=== PATIENT | male | born 1980 | race Caucasian/White ===

== ENCOUNTER 2025-01-02 02:46 | Observation (INO) | payer OTHER, SELFPAY ==
[2025-01-01] VITALS (7 sets, daily range): BP systolic 130–157; BP diastolic 71–85
--- NOTE | 2025-01-01 22:46 | ED.GENMED ---
History of Present Illness
<Elle Moreno PA-C - Last Filed: 01/02/25 01:42>
General
Chief Complaint: Head Injury
Source: patient
Exam Limitations: none
Time Seen by Provider: 01/01/25 22:07
History of Present Illness
History of Present Illness:
44yoM with a history of Lyme disease earlier this year presenting for evaluation after head injury. Four days ago, patient was speaking with his sister when he suddenly became lightheaded and felt like he had to pass out. He went to sit in a chair
but missed due to losing consciousness. He hit his head on the concrete floor. Since then, he has been feeling unwell. He reports ongoing headaches with associated nausea. He is also experiencing hot and cold flashes. Lightheadedness has been
intermittent since then without any specific trigger. He also feels constipated. His heart races at times but he has been monitoring his heart rate on his Apple Watch which has been normal. He denies any chest pain or shortness of breath. No
additional syncopal episodes have occurred. He does not take any prescription medications. He is scheduled to retire from the [employer] next week.
Phy Exam
<Elle Moreno PA-C - Last Filed: 01/02/25 01:42>
General Physical Exam
General Presentation: well appearing and no apparent distress
General Skin: warm and dry
General Habitus: normal
General Mental: alert
ENT Exam
ENT Exam: normocephalic
Cardiovascular Exam
Cardiovascular Exam: no murmur and bradycardia
Pulmonary Exam
Pulmonary Exam: lungs clear, no respiratory distress, no rales, no crackles, no rhonchi and no wheezing
Gastrointestinal Exam
Gastrointestinal Exam: soft, non distended and other (+R sided and epigastric tenderness. Abdomen soft, nondistended. No rebound or guarding.)
Neurological Exam
Neurological Exam: alert
[place] Coma Scale
Eye Opening: Spontaneous
Verbal Response: Oriented
Motor Response: Obeys Commands
GCS Total Score: 15
Skin Exam
Skin Exam: normal color and warm/dry
Psychiatric Exam
Psychiatric Exam: normal mood/affect
Course
<Elle Moreno PA-C - Last Filed: 01/02/25 01:42>
Orders/Labs/Results
Orders:
Orders
01/01/25 22:45
Electrocardiogram (*1) Urgent
Reason for Study: Syncope
CT Abd/pelvis W Iv Cont Urgent
Comment:
Reason For Exam: generalized abd pain
CT Head W/o Iv Contrast Urgent
Comment:
Reason For Exam: head injury
Cardiac Monitoring- Treatment ONCE
EKG- Treatment ONCE
0.9% Sodium Chloride 1000 ml [Nss] 1,000 ml IV BOLUS
01/01/25 22:51
Complete Blood Count/With Diff Urgent
Comprehensive Metabolic Panel Urgent
Lipase Urgent
TSH Reflex To Free T4 Urgent
Troponin I Urgent
Urinalysis Reflex To Culture Urgent
Date Specimen was Collected: 01/01/25
Time Specimen was Collected: 22:50
01/01/25 23:03
Orthostatic VS- Treatment ONCE
01/02/25 00:40
Ondansetron Injectable [Zofran] 4 mg IV NOW STA
Abnormal Lab Results
01/01/25
22:51
RBC 4.42 L 10^6/uL
(4.70-6.10)
Abs Immat Gran (auto) 0.1 H 10^3/uL
(0-0.05)
Absolute Neuts (auto) 8.3 H 10^3/uL
(1.4-6.5)
Absolute Monos (auto) 0.7 H 10^3/uL
(0.1-0.6)
Neutrophils % 77.1 H %
(42.2-75.2)
Lymphocytes % 14.8 L %
(20.5-51.1)
Glucose 110 H mg/dl
(70-99)
01/01/25 22:51
01/01/25 22:51
Vital Signs
Initial and Last Documented VS:
Initial Vital Signs
Temp Pulse Resp BP Pulse Ox
98.2 F 65 16 157/79 98
01/01/25 21:29 01/01/25 21:29 01/01/25 21:29 01/01/25 21:29 01/01/25 21:29
Last Documented Vital Signs
Temp Pulse Resp BP Pulse Ox
98.2 F 48 17 132/85 98
01/01/25 21:29 01/01/25 22:56 01/01/25 22:53 01/01/25 22:53 01/01/25 22:50
<Yoni Hood, - Last Filed: 01/02/25 01:37>
Orders/Labs/Results
Orders:
Orders
01/01/25 22:45
Electrocardiogram (*1) Urgent
Reason for Study: Syncope
CT Abd/pelvis W Iv Cont Urgent
Comment:
Reason For Exam: generalized abd pain
CT Head W/o Iv Contrast Urgent
Comment:
Reason For Exam: head injury
Cardiac Monitoring- Treatment ONCE
EKG- Treatment ONCE
0.9% Sodium Chloride 1000 ml [Nss] 1,000 ml IV BOLUS
01/01/25 22:51
Complete Blood Count/With Diff Urgent
Comprehensive Metabolic Panel Urgent
Lipase Urgent
TSH Reflex To Free T4 Urgent
Troponin I Urgent
Urinalysis Reflex To Culture Urgent
Date Specimen was Collected: 01/01/25
Time Specimen was Collected: 22:50
01/01/25 23:03
Orthostatic VS- Treatment ONCE
01/02/25 00:40
Ondansetron Injectable [Zofran] 4 mg IV NOW STA
Abnormal Lab Results
01/01/25
22:51
RBC 4.42 L 10^6/uL
(4.70-6.10)
Abs Immat Gran (auto) 0.1 H 10^3/uL
(0-0.05)
Absolute Neuts (auto) 8.3 H 10^3/uL
(1.4-6.5)
Absolute Monos (auto) 0.7 H 10^3/uL
(0.1-0.6)
Neutrophils % 77.1 H %
(42.2-75.2)
Lymphocytes % 14.8 L %
(20.5-51.1)
Glucose 110 H mg/dl
(70-99)
01/01/25 22:51
01/01/25 22:51
Vital Signs
Initial and Last Documented VS:
Initial Vital Signs
Temp Pulse Resp BP Pulse Ox
98.2 F 65 16 157/79 98
01/01/25 21:29 01/01/25 21:29 01/01/25 21:29 01/01/25 21:29 01/01/25 21:29
Last Documented Vital Signs
Temp Pulse Resp BP Pulse Ox
98.2 F 48 17 132/85 98
01/01/25 21:29 01/01/25 22:56 01/01/25 22:53 01/01/25 22:53 01/01/25 22:50
Kalynlt;Elle Moreno PA-C - Last Filed: 01/02/25 01:42>
MDM/Problems Addressed
Differential Diagnosis Includes:
44yoM here after a syncopal episode 5 days ago with head strike. C/o recurrent lightheadedness since then. HR in the 40s on initial exam. BP stable. He is well-appearing in no distress. Differential diagnosis includes but is not limited to:
Orthostasis, dehydration, symptomatic bradycardia, concussion
Initial ED plan: Check cardiac labs, TSH, UA, EKG, CT head, and CT abdomen. IV fluid bolus.
<Elle Moreno PA-C - Last Filed: 01/02/25 01:42>
*Pulse Oximetry
SaO2: 98
Oxygen Mode of Delivery: Room air
Patient hypoxic: no
*EKG
Interpreted by ED Provider?: Yes
EKG Intrepretation Date: 01/01/25
Heart Rate: 51
Rate: bradycardiac
Rhythm: sinus
[place]: normal axis
Interval: normal interval
QRS Pattern: normal QRS
Ischemia: no ischemia
*Critical Care Note
Total Time (30-74mins, 75-104mins- exclusive of procedures): Not Applicable
<Elle Moreno PA-C - Last Filed: 01/02/25 01:42>
Update Note
Update Note:
Labs unremarkable including normal electrolytes, troponin, and TSH. Preliminary [facility] radiology read of CT head and abdomen is negative for acute findings. Patient initially put up for discharge. Nursing staff reported concern due to heart rate.
Telemetry reviewed. Heart rate dropped to 38 at one point. No arrhythmias or heart blocks noted. Orthostatic vital signs normal. Patient ambulated around the emergency department and heart rate was around 60 although he did become symptomatic.
Concern for possible symptomatic bradycardia. Will admit for further evaluation.
ED Attending Note
<Elle Moreno PA-C - Last Filed: 01/02/25 01:42>
-
Portions of this chart may have been created with voice recognition software.� Occasional wrong word or��sound alike� substitutions may have occurred due to the inherent limitations of voice recognition software.
<Yoni Hood DO - Last Filed: 01/02/25 01:37>
ED Attending Note
Patient seen and examined by attending physician: Yes
I performed the substantive portion of visit, reviewed & personally made and approve the management plan that is documented in note by myself or OLIVA.: Yes
ED Attending Note:
44-year-old male with bradycardia and hypotension seen in conjunction with the PA. I have reviewed and agree with her history and treatment plan. On my physical exam which is performed independently, patient awake alert and oriented. No chest
pain or shortness of breath. Patient ambulated around the department and did feel some lightheadedness while walking. At this point patient to be brought into the hospital for further testing and consultation.
Discharge Plan
Departure
Patient Disposition: Admit
Date of Disposition: 01/02/25
Time of Disposition: 01:35
Presentation/result/management discussed w/ accepting MD/DO: Hospitalist
Patient with high blood pressure during this ER visit?: No
Discharge Problem:
Syncope, Closed head injury, Sinus bradycardia
Prescriptions:
New
metoclopramide HCl [Reglan] 10 mg tablet
10 mg PO Q8HPRN PRN (Reason: nausea and vomiting) Qty: 20 0RF
Referrals:
[facility] [Provider Group]
NONE,* [Family Provider, Internal Medicine]
Interventions
Interventions:
*Risk Screen - Suicide Last Done: 01/01/25 21:29
*General Assessment Last Done: 01/01/25 22:54
*Neglect/Abuse Screening Last Done: 01/01/25 21:29
*ED COVID-19 Vaccine History Last Done: 01/01/25 22:54
*ED Influenza Vaccine History Last Done: 01/01/25 22:54
ED- Neurological Assessment Last Done: 01/01/25 22:25
ED-Skin Assessment Last Done: 01/01/25 22:34
Discharge Date and Time
Print Language: SPANISH
[2025-01-01] MEDS: NSS 1000 IV (22:51)
[2025-01-01 23:02] LABS: Urine Character Clear (Clear)
[2025-01-01 23:06] LABS: Hematocrit 40.4 % (39.0-52.0); Hemoglobin 13.4 g/dL (13.0-18.0); Mean Corp Hgb Conc. 33.2 g/dL (33.0-37.0); Mean Corpuscular Volume 91.4 fL (80.0-94.0); Nucleated Red Blood Cells % 0 % (-); Platelet Count 334 10^3/uL (130-400); Red Cell Dist. Width 11.5 % (11.5-14.5)
[2025-01-01 23:20] LABS: ALT (SGPT) 30 U/L (0-50); AST (SGOT) 21 U/L (17-59); Albumin 4.5 g/dl (3.5-5.0); Alkaline Phosphatase 52 U/L (38-126); Blood Urea Nitrogen 14 mg/dl (9-20); Calcium 9.7 mg/dl (8.4-10.2); Carbon Dioxide 28 mmol/L (22-30); Chloride 107 mmol/L (98-107); Estimated Creatinine Clearance 87 ml/min; Glucose 110 mg/dl (70-99); Lipase 125 U/L (23-300); Potassium 4.2 mmol/L (3.5-5.1); Sodium 142 mmol/L (135-145); Total Protein 6.8 g/dl (6.3-8.2); eGFR > 60.00
[2025-01-01 23:27] LABS: Troponin I 0.016 ng/ml
[2025-01-02] VITALS: BP 128/68
[2025-01-02 00:14] VITALS: BP 131/72; BP 132/78; BP 135/71; PULSE 54; PULSE 56; PULSE 59
[2025-01-02 01:00] VITALS: BP 119/66
[2025-01-02 02:15] VITALS: BP 126/74
--- NOTE | 2025-01-02 02:26 | HPS.HSE ---
Family Physician
-
Family Physician: * NONE
Chief Complaint
-
Dizziness
History of Present Illness
This is a 44-year-old male with no known significant past medical history presenting to the emergency department after a syncopal episode with continued complaints of lightheadedness/dizziness.
Patient reported that he was in usual state of health up until sometime from Sunday when after getting up to walk to the bathroom he felt very lightheaded and collapsed against a wall hitting his head on the wall. He collapsed or went to the floor
and family members witnessed this episode. There was for loss of consciousness at that time but he was not out for a long time. He was not taken to any healthcare facility. He said he was awake for several hours after the episode and was feeling
well however later on he started having nausea as well as palpitations and lightheadedness. He states he gets this feelings of lightheadedness several times in a day and has had greater than 20 episodes in the last 4 days. He denies any shortness
of breath. He denies any history of exertional chest pain. He does note slight ache below his left nipple without any radiation currently. He reports a headache associated with this nausea or episodes. He denies any blurry vision or double
vision. He denies any spinning sensation.
Patient reported that he was treated for Lyme with a full course of doxycycline around July of this year.
In the emergency department he was afebrile, blood pressure was stable at 130/85 with a pulse rate of 48 and he was satting 98% on room air. ECG shows sinus bradycardia rate of 51 and no heart block or QTc prolongation.. No ischemia. Troponin was
normal. TSH was also within the normal range.
CBC was unremarkable, electrolytes BUN/creatinine were all normal.
CT of the head shows no acute intracranial process. CT of the abdomen shows no abdominal findings.
Medical History
Past Medical History
Past Medical History: Reports None
Past Surgical History: Reports Appendectomy
Social History
Tobacco: Vaping
Alcohol: None
Drug: None
Personal:
Living: With Family
Employment: Employed
Family History
Family History: Not pertinent
Allergies / Home Medications
Allergies reflects when Allergies were last updated in [facility].
Home Medications with original date entered in [facility]
Allergy/Medication List:
Allergies
Allergy/AdvReac Type Severity Reaction Status Date / Time
No Known Allergies Allergy Unverified 01/01/25 21:32
Home Medications
metoclopramide HCl 10 mg tablet (Reglan) 10 mg PO Q8HPRN PRN nausea and vomiting #20 tabs 01/02/25
Review of Systems
-
History Source: Patient
Constitutional: Reports No Symptoms
EENT: Reports No Symptoms
Respiratory: Reports No Symptoms
Cardiac: Reports Palpitations
Abdomen/GI: Reports Nausea
: Reports No Symptoms
Musculoskeletal: Reports No Symptoms
Skin: Reports No Symptoms
Neurological: Reports Dizzy and Headache
Endocrine: Reports No Symptoms
Hematologic/Lymphatic: Reports No Symptoms
Psych: Reports No Symptoms
Physical Exam
Vital Signs
Vital Signs
Temp Pulse Resp BP Pulse Ox
98.2 F 48 17 132/85 98
01/01/25 21:29 01/01/25 22:56 01/01/25 22:53 01/01/25 22:53 01/01/25 22:50
Physical Exam
General: Well Developed, Well Nourished and No Apparent Distress
HEENT: NormoCephalic, Moist mucous membranes and Atraumatic
Respiratory: Clear
Cardiac: S1/S2 and Regular Rhythm; No Murmur or Rub
GI: Soft, Non Tender, Non Distended and Normal Bowel Sounds; No Organomegaly
Rectal: Deferred by Provider
Musculoskeletal: No Clubbing, No Cyanosis and No Edema
Skin: No Rash
Neuro: AO x 3 and Nonfocal/grossly intact
Laboratory Results
-
01/01/25 22:51
01/01/25:51
Laboratory Results
Total Bilirubin 0.5 mg/dl (0.2-1.3) 01/01/25 22:51
AST 21 U/L (17-59) 01/01/25 22:51
ALT 30 U/L (0-50) 01/01/25:
Alkaline Phosphatase 52 U/L (38-126) 01/01/25 22:51
Troponin I 0.016 ng/ml 01/01/25 22:
Lipase 125 U/L (23-300) 01/01/25:51
Data Reviewed
-
CT Scan: Report Reviewed by me
Medical Tests (Nuc Med, Echo, EKG etc): Image Personally Visualized and interpreted
Lab Data: Labs Reviewed by me
Impression/Plan
-
IMPRESSION:
44-year-old with no known significant past medical history presenting to the emergency department with episode of syncope and collapse with recurrent episodes of lightheadedness/dizziness as well as headache over the last 4 days. Workup in the
emergency department shows no signs of infection. ECG showed sinus bradycardia at rate of 50s. Telemetry so far shows this rate stable in the 50s without any evidence of heart block, tachyarrhythmia or ventricular ectopy. Troponin was negative.
TSH was within the normal range. His CT scan of the head shows no acute intracranial process. CT scan of the abdomen and pelvis were normal.
PLAN:
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 Likely lightheadedness and headache may be related to a concussion given that he
truly had a syncopal episode and collapsed to the floor. However workup in the ED so far is negative for any cardiac abnormality. ECG with sinus bradycardia and no evidence of heart block (patient in room had Lyme and was treated with a full
course of doxycycline within the last year). No chest pain or shortness of breath to suggest a pulmonary embolism.
-Admit to telemetry observation
-Monitor on telemetry x 24 hours
-Repeat troponin in a.m. unless having chest pain
-Echocardiogram in a.m. to rule out HOCM or valve abnormality
-Orthostatic vital signs in a.m.
- pain control and antiemetics
DVT PPX - SCD
Code status - Full Code
[2025-01-02] MEDS: TORADOL 15 MG IV (02:51)
[2025-01-02] MEDS: REGLAN 10 MG IV (02:53)
[2025-01-02 03:00] VITALS: BP 128/73
[2025-01-02 03:58] VITALS: BP 130/71
== END 2025-01-03 04:00 | disposition home or self-care (01) ==
LOC: ED 02:46
PROVIDERS: Physician Assistant; ADMITTING PHYSICIAN Internal Medicine; ATTENDING PHYSICIAN Family Medicine; EMERGENCY PHYSICIAN Student in an Organized Health Care Education/Training Program
DX: R55 Syncope and collapse (principal); S09.90XA Unspecified injury of head, initial encounter; W18.30XA Fall on same level, unspecified, initial encounter; R00.1 Bradycardia, unspecified; F17.290 Nicotine dependence, other tobacco product, uncomplicated
CPT/HCPCS: 70450; 74177; 80053; 81003; 83690; 84443; 84484; 85025; 93005; 96361; 96374; 99285; G0378; Q9967

== ENCOUNTER 2025-01-26 21:16 | Emergency (ER) | payer OTHER, SELFPAY ==
[2025-01-26 21:20] VITALS: BP 166/96
[2025-01-26 21:36] LABS: Hematocrit 44.3 % (39.0-52.0); Hemoglobin 14.8 g/dL (13.0-18.0); Mean Corp Hgb Conc. 33.4 g/dL (33.0-37.0); Mean Corpuscular Volume 90.0 fL (80.0-94.0); Nucleated Red Blood Cells % 0 % (-); Platelet Count 343 10^3/uL (130-400); Red Cell Dist. Width 11.4 % (11.5-14.5)
[2025-01-26 21:51] LABS: ALT (SGPT) 23 U/L (0-50); AST (SGOT) 20 U/L (17-59); Albumin 5.0 g/dl (3.5-5.0); Alkaline Phosphatase 51 U/L (38-126); Blood Urea Nitrogen 14 mg/dl (9-20); Calcium 9.7 mg/dl (8.4-10.2); Carbon Dioxide 31 mmol/L (22-30); Chloride 101 mmol/L (98-107); Glucose 120 mg/dl (70-99); Potassium 3.7 mmol/L (3.5-5.1); Sodium 139 mmol/L (135-145); Total Protein 7.4 g/dl (6.3-8.2); eGFR > 60.00
[2025-01-26 23:04] VITALS: BMI 23.5
[2025-01-26 23:10] VITALS: BP 138/79
--- NOTE | 2025-01-27 01:09 | ED.GENMED ---
History of Present Illness
General
Chief Complaint: Generalized Pain
Source: patient
Exam Limitations: none
Time Seen by Provider: 01/27/25 00:27
Nursing documentation reviewed up to this point in time: agreed with
History of Present Illness
History of Present Illness:
Note:
CHIEF COMPLAINT(S)
Back pain, fatigue, and a suspected recurrence of Lyme disease.
HISTORY OF PRESENT ILLNESS
The patient is a 44-year-old male with a history of Lyme disease, presenting with back pain, fatigue, and symptoms reminiscent of a previous Lyme disease episode. Approximately one month ago, the patient began experiencing symptoms after returning
from service. Initially, the patient experienced a sensation similar to dozing off, constant and without a pattern. Episodes of stomach pain, diaphoresis, temperature dysregulation (alternating between feeling hot and cold), and fatigue
followed, resulting in prolonged sleep (e.g., 17 hours). The back pain began in the lower back and progressed upwards, following the same progression as a prior Lyme disease episode. The patient reports initially low back pain the past few weeks and
notes that it has progressed upwards and he also notes and a significant weight loss of 20 pounds over the past few months. Pertinent negative symptoms include no recent tick bites and no knee swelling no difficulty ambulating. The patient describes
knee pain, especially in the right knee, similar to the feeling of 'bone on bone' due to arthritis. There is no recent history of traumatic injury or unusual physical activity. The patient has not left home much and admits to functional limitations,
such as being exhausted from vacuuming. The patient has been taking naproxen to manage his pain. Patient is seeking urgent care today because he is concerned that lyme disease recurrence would cause him to become critically ill and unable to make
his primary care appointment on . Patient denies trauma. He denies urinary incontinence, fevers, fecal incontinence, genital paresthesias, ambulatory dysfunction.
PAST MEDICAL AND SURGICAL HISTORY
History of Lyme disease treated with doxycycline.
CHRONIC MEDICAL CONDITIONS SIGNIFICANTLY AFFECTING CARE
The patient reports arthritis, which affects joint function, particularly in the knees.
SOCIAL DETERMINANTS AFFECTING HEALTH
The patient experienced difficulty obtaining healthcare due to a government shutdown affecting residential processes and healthcare access.
REVIEW OF SYSTEMS
- Constitutional: Significant unexplained weight loss of 20 pounds, severe fatigue.
- Neurological: Describes feeling like dozing off without actually sleeping, extreme fatigue.
- Musculoskeletal: back pain starting in the lower back and progressing upwards, knee pain with a [id number] sensation, no swelling observed.
- Integumentary: Diaphoresis.
- Gastrointestinal: Intermittent abdominal pain, nausea, and diarrhea.
- Systemic: Alternating sensations of feeling very cold and very hot without external factors.
PHYSICAL EXAM
General: Alert, no acute distress. Very well appearing. Conversational.
Skin: Warm, dry. No erythema migrans.
Head: Normocephalic, atraumatic.
Neck: Supple, trachea midline.
Full ROM. No midline spinal tenderness.
Eye, Ears, Nose, Mouth, and Throat: Oral mucosa moist.
Cardiovascular: Regular rate and rhythm, no murmurs. Normal peripheral perfusion, no edema.
Respiratory: No wheezes, rales, or rhonchi. Respirations are non-labored.
Gastrointestinal: Abdomen nondistended. Non-tender to palpation. No pulsatile abdominal mass.
Back: Normal range of motion, Normal alignment. No midline spinal tenderness.
Musculoskeletal: Normal ROM, normal strength. 5/5 strength in bilateral lower extremities. No midline spinal tenderness. No tenderness to palpation. No suprapatellar swelling of effusion.
Neurological: Alert and oriented to person, place, time, and situation, No focal neurological deficit observed. CN II-XII intact.
Psychiatric: Cooperative, appropriate mood & affect.
PROBLEM LIST
- Acute: back pain, fatigue, suspected Lyme disease recurrence.
- Chronic: Arthritis affecting primarily the knees.
PLAN
- Consideration of re-treatment for Lyme disease symptoms
- Management of symptoms including pain control.
- Possible use of alternative treatments if doxycycline cannot be tolerated due to gastrointestinal effects.
DIFFERENTIAL DIAGNOSIS
The Differential Diagnosis includes, in no particular order and is not limited to:
1. Recurrence of Lyme disease
2. Chronic Lyme disease
3. Musculoskeletal strain
4. Fibromyalgia
5. Polymyalgia rheumatica
6. Inflammatory arthritis
7. Spine disc issue or degenerative changes
8. Viral infection causing systemic symptoms
9. Chronic fatigue syndrome
10. Depression manifesting with somatic symptoms
CHART REVIEW
Reviewed ER physician documentation from 01/01/25 patient seen for lightheadedness admitted for possible symptomatic bradycardia but left AMA
MDM/DISPOSITION
The patient is a 44-year-old male with a history of Lyme disease, presenting to the ER today with concerns of multiple ongoing symptoms. He has had back pain, fatigue, and symptoms reminiscent of a previous Lyme disease episode. Approximately one
month ago, the patient began experiencing symptoms after returning from service. Initially, the patient experienced a sensation similar to dozing off, constant and without a pattern. He tested positive for lyme disease at the time and was
treated with doxycycline after which all of his symptoms resolved.
Patient reports that the fast few weeks the symptoms started up again and feel exactly likely when he had lyme disease. Of all his symptoms, patient's most bothersome symptom is back pain. Appears MSK in etiology. Chronic. No concern for spinal
involvement or cardiac process. Mid back discomfort is the only symptom he has at this current moment and states that this has been present for multiple weeks. On physical exam, he is well appearing, in no acute distress. No midline spinal
tenderness no muscular tenderness to pain with movement. No reported chest pain. His vitals are stable.
I did offer imaging and symptomatic management. Patient is declining toradol and declining imaging as he has had multiple images in the past. Patient reportedly states that he is here today because of antibiotic treatment for lyme disease. He is
requesting amoxicillin. Discussed how doxycycline is the best treatment but amoxicillin can be used as an alternative, patient fears doxycycline because of the side effects he had in the past.
I had thorough discussion with patient, discussed how true lyme recurrence is less common, symptoms may be auto service representative of a post lyme disease syndrome, symptoms less likely related to lyme flare. Discussed case with ED attending. We will initiate
antibiotic treatment and have him follow closely with infectious disease and PCP.
Phy Exam
Physical Exam
Physical Exam:
see hpi
Course
Orders/Labs/Results
Orders:
Orders
01/26/25 21:29
CMP [Comprehensive Metabolic Panel] Urgent
Complete Blood Count/With Diff Urgent
Lyme Progressive Urgent
Comment: ADD ON
01/27/25 01:10
Add On- LAB Urgent
Tests Added?: lyme disease
Abnormal Lab Results
01/26/25
21:29
RDW 11.4 L %
(11.5-14.5)
Absolute Monos (auto) 0.8 H 10^3/uL
(0.1-0.6)
Carbon Dioxide 31 H mmol/L
(22-30)
Glucose 120 H mg/dl
(70-99)
01/26/25 21:29
01/26/25 21:29
Vital Signs
Initial and Last Documented VS:
Initial Vital Signs
Temp Pulse Resp BP Pulse Ox
98.3 F 64 22 166/96 98
01/26/25 21:20 01/26/25 21:20 01/26/25 21:20 01/26/25 21:20 01/26/25 21:20
Last Documented Vital Signs
Temp Pulse Resp BP Pulse Ox
98.3 F 53 16 138/79 100
01/26/25 21:20 01/27/25 01:31 01/27/25 01:31 01/27/25 01:31 01/27/25 01:31
*Pulse Oximetry
SaO2: 100
Oxygen Mode of Delivery: Room air
Patient hypoxic: no
*Critical Care Note
Total Time (30-74mins, 75-104mins- exclusive of procedures): Not Applicable
ED Attending Note
-
Portions of this chart may have been created with voice recognition software.� Occasional wrong word or��sound alike� substitutions may have occurred due to the inherent limitations of voice recognition software.
Discharge Plan
Departure
Patient Disposition: Home (Routine Discharge)
Date of Disposition: 01/27/25
Time of Disposition: 01:21
Patient with high blood pressure during this ER visit?: Yes
Condition: Good
Discharge Problem:
Back pain, Post-Lyme disease syndrome
Instructions: Lyme disease, Chronic Pain (DC), BLOOD PRESSURE
Prescriptions:
New
cyclobenzaprine 15 mg capsule,extended release 24hr
15 mg PO HS PRN (Reason: muscle spasm) Qty: 10 0RF
No Action
amoxicillin 500 mg capsule
500 mg PO TID
Referrals:
Yoni Elias, [Active, Infectious Diseases] - Call in 1-3 days for appt
Parminder Thibodeaux MD [Family Provider, Family Practice]
Activity Restrictions/Additional Instructions:
Please call attached number to schedule follow-up appointment with infectious disease. Amoxicillin has been sent to her pharmacy. You take 1 tablet 3 times daily for 14 days. I would continue the NSAIDs. Cyclobenzaprine has also been sent to
your pharmacy. You can take 1 tablet once nightly as needed.
Please call attached number to schedule follow-up with infectious disease. Please also follow-up with your primary care provider.
PLEASE RETURN THE ER SHOULD YOU DEVELOP CHEST PAIN OR SHORTNESS OF BREATH, NAUSEA, VOMITING, FEVERS, INABILITY AMBULATE, URINARY OR FECAL INCONTINENCE, OR ANY OTHER SIGNS OR SYMPTOMS WORRISOME TO YOU.
Interventions
Interventions:
*Risk Screen - Suicide Last Done: 01/26/25 21:20
*General Assessment Last Done: 01/26/25 23:06
*Neglect/Abuse Screening Last Done: 01/26/25 21:20
*ED- Fall Risk Assessment Last Done: 01/27/25 00:52
*ED COVID-19 Vaccine History Last Done: 01/26/25 23:05
*ED Influenza Vaccine History Last Done: 01/26/25 23:06
*Nursing Disposition Last Done: 01/27/25 01:31
Discharge Date and Time
Discharge Date/Time: 01/27/25 01:32
Print Language: HUNGARIAN
[2025-01-27 01:31] VITALS: BP 138/79
== END 2025-01-27 01:32 | disposition home or self-care (01) ==
LOC: EMR 21:16
PROVIDERS: EMERGENCY PHYSICIAN Emergency Medicine; FAMILY PHYSICIAN Family Medicine
DX: A69.29 Other conditions associated with Lyme disease (principal); M54.9 Dorsalgia, unspecified; R53.83 Other fatigue; Z86.19 Personal history of other infectious and parasitic diseases
CPT/HCPCS: 99283; 80053; 85025; 86618

== ENCOUNTER 2025-01-27 09:23 | Emergency (ER) | payer OTHER, SELFPAY ==
[2025-01-27] VITALS (11 sets, daily range): BP systolic 111–149; BP diastolic 64–86; BMI 22.9
--- NOTE | 2025-01-27 11:12 | ED.GENMED ---
History of Present Illness
<Nasima Drake PA-C - Last Filed: 01/28/25 07:59>
General
Chief Complaint: Fainting Sensation
Time Seen by Provider: 01/27/25 10:52
History of Present Illness
History of Present Illness:
Barry is a 44M with PMH of lyme disease and syncope was seen in the ER early this morning for a possible Lymes flair and discharged to home with Rx for amoxicillin and cyclobenzaprine, returns this morning complaining of lightheadedness and waking
up feeling hot. Intermittent nausea. Has not had anything to eat or drink since yesterday. 20 lbs weight loss in the last 2 months. Has not yet established care with PCP or infectious disease.
Phy Exam
<Nasima Drake PA-C - Last Filed: 01/28/25 07:59>
General Physical Exam
General Presentation: well appearing and no apparent distress
General Skin: warm and dry
General Habitus: normal
General Mental: alert
General Hydration: appears well hydrated
ENT Exam
ENT Exam: EOMI, pharynx normal, neck supple and normocephalic
Eye Exam
Eye Exam: PERRL, cornea clear and conjunctiva normal
Cardiovascular Exam
Cardiovascular Exam: regular rate/rhythm, no edema, no murmur and normal peripheral pulses
Pulmonary Exam
Pulmonary Exam: lungs clear, no respiratory distress, no rales, no crackles, no rhonchi, no stridor, no wheezing and no cough
Gastrointestinal Exam
Gastrointestinal Exam: normal bowel sounds, non tender, soft, no organomegaly, no pulsatile mass and non distended
Neurological Exam
Neurological Exam: alert, oriented x3, no motor deficits and speech normal
Musculoskeletal Exam
Musculoskeletal Exam: full ROM and no edema
Skin Exam
Skin Exam: normal color, warm/dry, no rash and no petechia
Psychiatric Exam
Psychiatric Exam: normal mood/affect
Course
<Nasima Drake PA-C - Last Filed: 01/28/25 07:59>
Orders/Labs/Results
Orders:
Orders
01/27/25 09:53
Electrocardiogram (*1) Urgent
Reason for Study: Palpitations
01/27/25 09:54
EKG- Treatment ONCE
01/27/25 11:09
Ondansetron Injectable [Zofran] 4 mg IV NOW STA
01/27/25 11:10
0.9% Sodium Chloride 250 ml [Nss] 250 ml IV BOLUS
01/27/25 11:12
0.9% Sodium Chloride 500 ml [Nss] 500 ml IV BOLUS
01/27/25 11:15
CMP [Comprehensive Metabolic Panel] Urgent
Complete Blood Count/With Diff Urgent
TSH Reflex To Free T4 Urgent
01/27/25 11:16
Bedside Glucose- Treatment ONCE
Accucheck [Bedside Glucose Monitoring] As Directed
Frequency: Other frequency
Other frequency: now
01/27/25 12:01
Chest/Abd/Pelvis w Contrast CT [CT Chest/abd/pel W Iv Cont] Urgent
Comment:
Reason For Exam: back pain
01/27/25 19:27
Amoxicillin [Amoxil] 500 mg PO NOW STA
Abnormal Lab Results
01/27/25
11:15
RDW 11.3 L %
(11.5-14.5)
01/27/25 11:15
01/27/25 11:15
Vital Signs
Initial and Last Documented VS:
Initial Vital Signs
Temp Pulse Resp BP Pulse Ox
36.8 C 59 16 149/86 99
01/27/25 09:26 01/27/25 09:26 01/27/25 09:26 01/27/25 09:26 01/27/25 09:26
Last Documented Vital Signs
Temp Pulse Resp BP Pulse Ox
36.8 C 57 16 139/82 100
01/27/25 09:26 01/27/25 19:00 01/27/25 16:19 01/27/25 19:00 01/27/25 16:00
<Hermes Hood, DO - Last Filed: 01/27/25 19:03>
Orders/Labs/Results
Orders:
Orders
01/27/25 09:53
Electrocardiogram (*1) Urgent
Reason for Study: Palpitations
01/27/25 09:54
EKG- Treatment ONCE
01/27/25 11:09
Ondansetron Injectable [Zofran] 4 mg IV NOW STA
01/27/25 11:10
0.9% Sodium Chloride 250 ml [Nss] 250 ml IV BOLUS
01/27/25 11:12
0.9% Sodium Chloride 500 ml [Nss] 500 ml IV BOLUS
01/27/25 11:15
CMP [Comprehensive Metabolic Panel] Urgent
Complete Blood Count/With Diff Urgent
TSH Reflex To Free T4 Urgent
01/27/25 11:16
Bedside Glucose- Treatment ONCE
Accucheck [Bedside Glucose Monitoring] As Directed
Frequency: Other frequency
Other frequency: now
01/27/25 12:01
Chest/Abd/Pelvis w Contrast CT [CT Chest/abd/pel W Iv Cont] Urgent
Comment:
Reason For Exam: back pain
01/27/25 19:27
Amoxicillin [Amoxil] 500 mg PO NOW STA
Abnormal Lab Results
01/27/25
11:15
RDW 11.3 L %
(11.5-14.5)
01/27/25 11:15
01/27/25 11:15
Vital Signs
Initial and Last Documented VS:
Initial Vital Signs
Temp Pulse Resp BP Pulse Ox
36.8 C 59 16 149/86 99
01/27/25 09:26 01/27/25 09:26 01/27/25 09:26 01/27/25 09:26 01/27/25 09:26
Last Documented Vital Signs
Temp Pulse Resp BP Pulse Ox
36.8 C 57 16 139/82 100
01/27/25 09:26 01/27/25 19:00 01/27/25 16:19 01/27/25 19:00 01/27/25 16:00
<Nasima Drake PA-C - Last Filed: 01/28/25 07:59>
MDM/Problems Addressed
Differential Diagnosis Includes:
Autoimmune disorder, thyroid dysfunction, infection
All lab work unremakable. Remains bradycardic in the 50s but this is unchanged from baseline. Given zofran and IVF with some improvement. Awaiting CT chest abd pelvis.
<Nasima Drake PA-C - Last Filed: 01/28/25 07:59>
*Pulse Oximetry
SaO2: 100
Oxygen Mode of Delivery: Room air
Patient hypoxic: no
*Critical Care Note
Total Time (30-74mins, 75-104mins- exclusive of procedures): Not Applicable
<Hermes Hood, DO - Last Filed: 01/27/25 19:03>
Update Note
Update Note:
7 PM care of patient was transitioned pending CT. CT negative for any cancer screening or acute pathology. Patient feels comfort going home and has PCP follow-up this week
ED Attending Note
<Nasima Drake PA-C - Last Filed: 01/28/25 07:59>
-
Portions of this chart may have been created with voice recognition software.� Occasional wrong word or��sound alike� substitutions may have occurred due to the inherent limitations of voice recognition software.
Discharge Plan
Departure
Patient Disposition: Home (Routine Discharge)
Date of Disposition: 01/27/25
Time of Disposition: 18:58
Patient with high blood pressure during this ER visit?: No
Discharge Problem:
Fatigue
Prescriptions:
New
amoxicillin 500 mg capsule
500 mg PO TID 7 Days Qty: 21 0RF
No Action
cyclobenzaprine 15 mg capsule,extended release 24hr
15 mg PO HS PRN (Reason: muscle spasm) Qty: 10 0RF
amoxicillin 500 mg capsule
500 mg PO TID
Referrals:
Alena Davis CRNP [Family Provider, Family Practice]
Activity Restrictions/Additional Instructions:
Please return for any worsening symptoms.
You may return at any time if you have further concerns.
Please keep your primary care follow-up this week
Interventions
Interventions:
*Risk Screen - Suicide Last Done: 01/27/25 09:26
*General Assessment Last Done: 01/27/25 09:49
*Neglect/Abuse Screening Last Done: 01/27/25 09:26
*ED- Fall Risk Assessment Last Done: 01/27/25 09:49
*ED COVID-19 Vaccine History Last Done: 01/27/25 09:49
*ED Influenza Vaccine History Last Done: 01/27/25 09:49
*Nursing Disposition Last Done: 01/27/25 19:45
ED- Cardiac Assessment Last Done: 01/27/25 09:55
ED- Neurological Assessment Last Done: 01/27/25 09:55
Discharge Date and Time
Discharge Date/Time: 01/27/25 19:45
Print Language: MALAY
[2025-01-27 11:20] LABS: Glucose - Point of Care 92 mg/dl (70-99)
[2025-01-27] MEDS: ZOFRAN 4 MG IV (11:23)
[2025-01-27] MEDS: NSS 500 IV (11:23)
[2025-01-27 12:10] LABS: Hematocrit 42.9 % (39.0-52.0); Hemoglobin 14.5 g/dL (13.0-18.0); Mean Corp Hgb Conc. 33.8 g/dL (33.0-37.0); Mean Corpuscular Volume 91.1 fL (80.0-94.0); Nucleated Red Blood Cells % 0 % (-); Platelet Count 310 10^3/uL (130-400); Red Cell Dist. Width 11.3 % (11.5-14.5)
[2025-01-27 12:24] LABS: ALT (SGPT) 27 U/L (0-50); AST (SGOT) 26 U/L (17-59); Albumin 4.8 g/dl (3.5-5.0); Alkaline Phosphatase 49 U/L (38-126); Blood Urea Nitrogen 12 mg/dl (9-20); Calcium 9.9 mg/dl (8.4-10.2); Carbon Dioxide 29 mmol/L (22-30); Chloride 103 mmol/L (98-107); Estimated Creatinine Clearance 87 ml/min; Glucose 93 mg/dl (70-99); Potassium 5.0 mmol/L (3.5-5.1); Sodium 139 mmol/L (135-145); Total Protein 7.1 g/dl (6.3-8.2); eGFR > 60.00
[2025-01-27] MEDS: AMOXIL 500 MG PO (19:33)
== END 2025-01-27 19:45 | disposition home or self-care (01) ==
LOC: EMR 09:23
PROVIDERS: Surgery Trauma Surgery; EMERGENCY PHYSICIAN Emergency Medicine; FAMILY PHYSICIAN Nurse Practitioner Family
DX: R42 Dizziness and giddiness (principal)
CPT/HCPCS: 99284; 96360; 71260; 74177; 80053; 82962; 84443; 85025; 93005; Q9967